=== PATIENT | female | born 1935 | race Caucasian/White ===

== ENCOUNTER 2017-07-17 08:01 | Day surgery (SDC) | payer MEDICARE ==
[2015-02-23 09:55] VITALS: BMI 27.6
[2017-07-17] MEDS ORDERED: Propofol 10 mg/ml Inj (20 ML) ONE ×2 (09:43→10:04)
--- NOTE | 2017-07-17 09:43 | CP.SDSHP ---
Same Day Surgery H & P - History Proposed Procedure: Colonoscopy Pre-Op Diagnosis: history of colon polyps - Previous Medical/Surgical History Cardiac: Hypertension Comments: Arthritis, hyperlipidemia, diverticular disease, Sump syndrome Previous Surgical History: Hysterectomy, partial gastrectomy, cholecystectomy, choledohoduodenostomy - Allergies Allergies: Allergies iodine Allergy (Verified 07/17/17 08:19) SHORTNESS OF BREATH SHELLFISH Allergy (Uncoded 02/23/15 09:34) SHORTNESS OF BREATH - Current Medications Current Medications: See reconciliation sheet - Physical Exam General Appearance: WD WN female in NAD Vital Signs: Vital Signs 07/17/17 08:28 Temperature 98.4 F Pulse Rate 77 Respiratory 19 Rate Blood Pressure 136/55 L O2 Sat by Pulse 96 Oximetry Mental Status: Alert & Oriented x3 Neuro: WNL Heart: WNL Lungs: WNL GI: WNL - {Optional Preform as Required} Abdomen: WNL - Impression Impression: Personal history of colon polyps Pt. Evaluated Today:Candidate for Anesthesia & Procedure: Yes - Date & Time Date: 07/17/17 Time: 09:43 Short Stay Discharge - Short Stay Discharge Admitting Diagnosis/Reason for Visit: HX OF COLONIC POLYPS Disposition: HOME/ ROUTINE
[2017-07-17] MEDS ORDERED: Lactated Ringer's 1,000 ML IV ONE (09:45)
[2017-07-17] MEDS ORDERED: Lidocaine Hydrochloride 5 ML INJ ONE (10:13)
[2017-07-17] MEDS ORDERED: Phenylephrine 10 mg/ml Inj ONE (10:13)
[2017-07-17 10:50] VITALS: TEMP 98
[2017-07-17 10:51] VITALS: RESP 14
[2017-07-17 11:43] VITALS: O2SAT 100
[2017-07-17 11:57] VITALS: BP 141/53; PULSE 58
== END 2017-07-17 11:40 | disposition home or self-care (01) ==
LOC: C.ENDO 08:01
PROVIDERS: ATTEND Internal Medicine Gastroenterology
DX: Z12.11 Encounter for screening for malignant neoplasm of colon (principal); D12.3 Benign neoplasm of transverse colon; K64.8 Other hemorrhoids; K57.30 Diverticulosis of large intestine without perforation or abscess without bleeding; I10 Essential (primary) hypertension; E78.5 Hyperlipidemia, unspecified; Z86.010 Personal history of colon polyps; Z90.3 Acquired absence of stomach [part of]; Z90.49 Acquired absence of other specified parts of digestive tract
CPT/HCPCS: 45385; 88305; J2370; J2704; J3010; J7120

== ENCOUNTER 2018-01-22 07:58 | Day surgery (SDC) | payer MEDICARE ==
[2018-01-19 13:55] VITALS: BMI 25.9
--- NOTE | 2018-01-22 09:28 | CP.SDSHP ---
Same Day Surgery H & P - History Proposed Procedure: EGD Pre-Op Diagnosis: Dysphagia - Previous Medical/Surgical History Cardiac: Hypertension Misc: Other Comments: Gastric cancer Previous Surgical History: Gastrectomy, cholecystectomy, choledochoduodenostomy , Sump syndrome, hysterectomy - Allergies Allergies: Allergies iodine Allergy (Verified 07/17/17 08:19) SHORTNESS OF BREATH SHELLFISH Allergy (Uncoded 02/23/15 09:34) SHORTNESS OF BREATH - Current Medications Current Medications: See reconciliation sheet - Physical Exam General Appearance: WD WN female in NAD Vital Signs: Vital Signs 01/22/18 08:29 Temperature 97.8 F Pulse Rate 64 Respiratory 19 Rate Blood Pressure 144/50 L O2 Sat by Pulse 98 Oximetry Mental Status: Alert & Oriented x3 Neuro: WNL Heart: WNL Lungs: WNL GI: WNL - {Optional Preform as Required} Abdomen: WNL - Impression Impression: Dysphagia Pt. Evaluated Today:Candidate for Anesthesia & Procedure: Yes - Date & Time Date: 01/22/18 Time: 09:32 Short Stay Discharge - Short Stay Discharge Admitting Diagnosis/Reason for Visit: DYSPHAGIA, UNSPECIFIED Disposition: HOME/ ROUTINE
[2018-01-22] MEDS ORDERED: Propofol 10 mg/ml Inj (20 ML) ONE ×2 (09:46→09:56)
[2018-01-22 10:11] VITALS: TEMP 97.1
[2018-01-22 11:32] VITALS: BP 131/63; PULSE 60; RESP 15; O2SAT 100
== END 2018-01-22 11:27 | disposition home or self-care (01) ==
LOC: C.ENDO 07:58
PROVIDERS: ATTEND Internal Medicine Gastroenterology
DX: R13.10 Dysphagia, unspecified (principal); K22.2 Esophageal obstruction; I10 Essential (primary) hypertension; Z85.028 Personal history of other malignant neoplasm of stomach; Z90.49 Acquired absence of other specified parts of digestive tract
CPT/HCPCS: 43239; 88305; J2001; J2704